=== PATIENT | male | born 1995 | race African-American/Black ===

== ENCOUNTER 2021-05-12 14:48 | Emergency (ER) | payer SELFPAY ==
[~2021-05-12] VITALS: Ht 190.5 cm; Wt 115.0 kg
[2021-05-12] MEDS ORDERED: ACETAMINOPHEN WITH CODEINE 300/30MG TABLET PO ONE (15:00)
[2021-05-12 15:27] VITALS: BP 124/70
[2021-05-12] MEDS ORDERED: IBUP-2029 MT (15:42)
== END 2021-05-12 15:52 | disposition home or self-care (01) ==
LOC: ER 14:58
DX: S40.011A Contusion of right shoulder, initial encounter (principal); W01.0XXA Fall on same level from slipping, tripping and stumbling without subsequent striking against object, initial encounter; Y93.89 Activity, other specified; Y92.018 Other place in single-family (private) house as the place of occurrence of the external cause
CPT/HCPCS: 73030; 99283; A4565

== ENCOUNTER 2021-08-28 00:46 | Emergency (ER) | payer SELFPAY ==
[~2021-08-28] VITALS: Ht 177.8 cm; Wt 86.0 kg
[~2021-08-28 00:46] MED LIST: IBUP-2029 MT
[2021-08-28 00:49] VITALS: BP 155/69
[2021-08-28] MEDS ORDERED: HYDROCODONE/ACETAMINOPHEN 5/325MG TABLET PO ONE (01:15)
[2021-08-28] MEDS ORDERED: IBUP-2030 MT (01:16)
[2021-08-28] MEDS ORDERED: T3 PO (01:16)
== END 2021-08-28 01:48 | disposition home or self-care (01) ==
LOC: ER 01:03
DX: S03.2XXA Dislocation of tooth, initial encounter (principal); X58.XXXA Exposure to other specified factors, initial encounter; Y93.89 Activity, other specified; Y92.018 Other place in single-family (private) house as the place of occurrence of the external cause
CPT/HCPCS: 99283